=== PATIENT | female | born 1985 | race Caucasian/White ===

== ENCOUNTER → 2017-01-20 | Outpatient (CLI) | payer BC ==
[2016-03-02 21:01] VITALS: BP 114/77
[~2017-01-20] MED LIST: FAMO-63 PO; FOLI1TAB39 PO; NO HOME MEDICATIONS; OXYC-323 PO; PANT40TA3 PO; PHEN15CA PO
--- NOTE | 2017-01-20 09:02 | KCIC ---
Indication: Right thyroid nodule. Patient has history of Maryann's. The right lobe of the thyroid measures 3.8 x 1.3 x 1.7 cm. The left lobe is surgically absent. There is some heterogeneity and increased vascularity to the right lobe but no discrete mass is detected. IMPRESSION: 1. Status post left thyroidectomy. 2. Right lobe thyroid heterogeneity and increased vascularity but no discrete mass is identified. Electronically signed by: Yosef Esteban MD (01/20/2017 8:57 AM) [id number]
== END | disposition home or self-care (01) ==
LOC: KCIC US 08:02
PROVIDERS: ATTEND Nurse Practitioner Family
DX: E04.1 Nontoxic single thyroid nodule (principal); Z86.39 Personal history of other endocrine, nutritional and metabolic disease; Z90.89 Acquired absence of other organs
CPT/HCPCS: 76536

== ENCOUNTER → 2017-02-03 | Outpatient (CLI) | payer BC ==
[2016-03-02 21:01] VITALS: BP 114/77
== END | disposition home or self-care (01) ==
LOC: EKG 13:27
PROVIDERS: ATTEND Nurse Practitioner Family
DX: R00.2 Palpitations (principal)
CPT/HCPCS: 93225

== ENCOUNTER 2017-03-01 16:34 | Emergency (ER) | payer BC ==
[~2017-03-01] VITALS: Ht 162.6 cm; Wt 81.6 kg
[2017-03-01] MEDS ORDERED: LEVO125T5 PO (17:07)
[2017-03-01 17:14] LABS: BASO # 0.1 x10^3/uL (0.0-0.2); BASO % 1 % (0-3); EOS % 1 % (0-3); HEMOGLOBIN 13.8 g/dL (12.0-15.5); LYMPH # 2.1 x10^3/uL (1.0-4.8); LYMPH % 28 % (24-48); MEAN CORPUSCULAR HEMOGLOBIN 30 pg (25-35); MEAN CORPUSCULAR HGB CONC 35 g/dL (31-37); MEAN CORPUSCULAR VOLUME 84 fL (79-100); MONO % 6 % (0-9); NEUT % 64 % (31-73); PLATELET COUNT 299 x10^3/uL (140-400); RED BLOOD COUNT 4.67 x10^6/uL (3.50-5.40); RED CELL DISTRIBUTION WIDTH 13.2 % (11.5-14.5); WHITE BLOOD COUNT 7.4 x10^3/uL (4.0-11.0)
[2017-03-01] MEDS ORDERED: IV NORMAL SALINE 1000ML BAG 1,000 ML IV ONE (17:15)
[2017-03-01 17:24] LABS: CALCIUM 9.1 mg/dL (8.5-10.1); CREATININE 0.9 mg/dL (0.6-1.0); GFR 72.1; POTASSIUM 3.6 mmol/L (3.5-5.1)
[2017-03-01 17:29] LABS: ALBUMIN 3.7 g/dL (3.4-5.0); ALBUMIN/GLOBULIN RATIO 1.2 (1.0-1.7); TOTAL BILIRUBIN 0.4 mg/dL (0.2-1.0); TOTAL PROTEIN 6.9 g/dL (6.4-8.2)
[2017-03-01] MEDS ORDERED: IBUPROFEN 600 MG TABLET. PO ONE (18:30)
[2017-03-01 18:52] VITALS: BP 122/79
[2017-03-01] MEDS ORDERED: ALPR1TAB2 PO (19:01)
--- NOTE | 2017-03-01 19:01 | PHYS DOC ---
Past Medical History Past Medical History: Anxiety, Hypothyroid, Other Additional Past Medical Histor: reyanuds disease, nodule on thyroid, small heart murmur, "some PVC's" SVT Past Surgical History: Appendectomy, Cholecystectomy, , Tonsillectomy Additional Past Surgical Histo: R ELBOW, D&C, BREAST , R ULNAR N. DECOMPRESS, PARTIAL THYROID Alcohol Use: Rarely Drug Use: None Adult General Chief Complaint Chief Complaint: ANXIETY/PANIC ATTACK HPI HPI Patient is a 32 year old female with history significant for hypertension and hypothyroidism who presents here today secondary to anxiety. Patient has a history significant for thyroid disease in the past and she reports that recently her medication has been increased. Patient denies any liver longer kidney problems. Patient denies any diabetes or coronary disease. Patient has not had any strokes in the past. Patient has any mental health issues in the past. Patient has any prior DVTs or PEs. Patient reports that she has had SVT in the past and she has been treated. Patient reports that she was electrically cardioverted 3 times in the past. 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 Patient is concerned that she is going to lose everything and may go to penitentiary like her mother. Patient apparently had an altercation that was verbal with her father and her father apparently disowned her earlier today. Patient is also concerned because she lives in her father's home and pays the police and her father just gave her 30 days noticed to leave the house. Patient denies any recent fevers shakes chills nausea vomiting diarrhea calf tenderness. Patient denies being on control pills. Patient has any tobacco alcohol or drugs. 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 Patient is short of breath. Patient reports that she feels like her heart is racing. Patient reports that she feels like this is all her anxiety secondary to lack of sleep and all the stressors in her life at this time. Patient's physical exam is remarkable for a resting tachycardia of 105. Patient is tearful crying. Review of systems: Constitutional: Denies fever or chills Eyes: Denies change in visual acuity, redness, or eye pain HENT: Denies nasal congestion or sore throat All other review systems are negative except as documented in the history of present illness portion. Physical exam: Constitutional: Well developed, well nourished, no acute distress, non-toxic appearance. HENT: Normocephalic, atraumatic, bilateral external ears normal, nose normal. Eyes: EOMI, conjunctiva normal, no discharge. Neck: Normal range of motion, no tenderness, supple, no stridor. Cardiovascular:Heart rate regular rhythm Lungs & Thorax: Bilateral breath sounds clear to auscultation no respiratory distress Abdomen: Bowel sounds normal, soft, no tenderness, no masses, no pulsatile masses. Skin: Warm, dry, no erythema, no rash. Back: No tenderness, no CVA tenderness. Extremities: No tenderness, no cyanosis, no clubbing, ROM intact, no edema. Neurologic: Alert and oriented X 3, normal motor function, normal sensory function, no focal deficits noted. Assessment and plan Anxiety disorder. Patient's clinically hemodynamically stable. Patient's labs were all within normal limits. Patient be discharged home in stable condition with a short course of Xanax. Patient was given Ativan 1 mg IV and looks and feels much improved. Patient was given a liter of normal saline. Patient's thyroid was checked and was within normal limits. Patient's EKG revealed normal sinus tach with nonspecific ST-T wave abnormalities without any evidence of ST elevation WI. Patient currently denies any suicidal or homicidal ideation. Patient is with her feels comfortable at this time to go home and will follow-up with mental health Current Medications Current Medications Current Medications Medications (Trade) Dose Ordered Sig/Tera Start Time Stop Time Status Last Admin Dose Admin Ibuprofen (Motrin) 600 mg 1X ONCE 03/01/17 18:30 03/01/17 18:32 DC Lorazepam (Ativan) 1 mg 1X ONCE 03/01/17 17:15 03/01/17 17:16 DC 03/01/17 17:11 1 MG Sodium Chloride 1,000 ml @ 1,000 mls/hr 1X ONCE 03/01/17 17:15 03/01/17 18:14 DC 03/01/17 17:23 1,000 MLS/HR Allergies Allergies Allergies Coded Allergies Type Severity Reaction Last Updated Verified naratriptan Allergy Severe ANAPHYLAXIS 05/19/15 Yes Penicillins Allergy Intermediate 05/19/15 Yes nalbuphine HCl Allergy Intermediate 03/02/16 Yes peanut Allergy Intermediate SOB/Throat tightness 05/19/15 Yes Current Patient Data Vital Signs Vital Signs Date Time Temp Pulse Resp B/P (MAP) Pulse Ox O2 Delivery O2 Flow Rate FiO2 03/01/17 17:52 96 28 130/84 (99) 96 Room Air 03/01/17 16:34 98.4 98.4 Lab Values Laboratory Tests Test 03/01/17 16:55 White Blood Count 7.4 x10^3/uL (4.0-11.0) Red Blood Count 4.67 x10^6/uL (3.50-5.40) Hemoglobin 13.8 g/dL (12.0-15.5) Hematocrit 39.0 % (36.0-47.0) Mean Corpuscular Volume 84 fL (79-100) Mean Corpuscular Hemoglobin 30 pg (25-35) Mean Corpuscular Hemoglobin Concent 35 g/dL (31-37) Red Cell Distribution Width 13.2 % (11.5-14.5) Platelet Count 299 x10^3/uL (140-400) Neutrophils (%) (Auto) 64 % (31-73) Lymphocytes (%) (Auto) 28 % (24-48) Monocytes (%) (Auto) 6 % (0-9) Eosinophils (%) (Auto) 1 % (0-3) Basophils (%) (Auto) 1 % (0-3) Neutrophils # (Auto) 4.7 x10^3uL (1.8-7.7) Lymphocytes # (Auto) 2.1 x10^3/uL (1.0-4.8) Monocytes # (Auto) 0.4 x10^3/uL (0.0-1.1) Eosinophils # (Auto) 0.1 x10^3/uL (0.0-0.7) Basophils # (Auto) 0.1 x10^3/uL (0.0-0.2) Sodium Level 141 mmol/L (136-145) Potassium Level 3.6 mmol/L (3.5-5.1) Chloride Level 105 mmol/L (98-107) Carbon Dioxide Level 24 mmol/L (21-32) Anion Gap 12 (6-14) Blood Urea Nitrogen 11 mg/dL (7-20) Creatinine 0.9 mg/dL (0.6-1.0) Estimated GFR (Cockcroft-Gault) 72.1 BUN/Creatinine Ratio 12 (6-20) Glucose Level 110 mg/dL (70-99) H Calcium Level 9.1 mg/dL (8.5-10.1) Total Bilirubin 0.4 mg/dL (0.2-1.0) Aspartate Amino Transferase (AST) 10 U/L (15-37) L Alanine Aminotransferase (ALT) 22 U/L (14-59) Alkaline Phosphatase 81 U/L (46-116) Total Protein 6.9 g/dL (6.4-8.2) Albumin 3.7 g/dL (3.4-5.0) Albumin/Globulin Ratio 1.2 (1.0-1.7) Thyroid Stimulating Hormone (TSH) 2.429 uIU/mL (0.358-3.74) Laboratory Tests 03/01/17 16:55 Laboratory Tests 03/01/17 16:55 EKG EKG [] Radiology/Procedures Radiology/Procedures [] Course & Med Decision Making Course & Med Decision Making Pertinent Labs and Imaging studies reviewed. (See chart for details) [] Dragon Disclaimer Dragon Disclaimer This electronic medical record was generated, in whole or in part, using a voice recognition dictation system. Departure Departure Impression: Primary Impression: Palpitation Additional Impression: Anxiety Disposition: 01 HOME, SELF-CARE Condition: IMPROVED Referrals: SHAHZAD WATT MD (PCP) Patient Instructions: Anxiety and Panic Attacks Scripts Alprazolam (XANAX) 1 Mg Tablet 1 TAB PO BID, #6 TAB Prov: CHEMA ACOSTA MD 03/01/17 Problem Qualifiers CHEMA ACOSTA MD Mar 01, 2017 19:01
--- NOTE | 2017-03-02 08:34 | EKG ---
[facility] [address] [place] [address] Test Date: 2017-03-01 Test Time: 16:43:29 Pat Name: BERTA MATTHEW Department: Room: Gender: F Marketing Teacher: : 1985 Requested By: CHEMA ACOSTA Order Number: [id number] Reading MD: Kwan Glez Measurements Intervals [place] Rate: 106 P: 40 MA: 146 QRS: 25 QRSD: 80 T: 4 QT: 316 QTc: 421 Interpretive Statements SINUS TACHYCARDIA Electronically Signed On 03-08-2017 14:01:24 CDT by Kwan Glez
== END 2017-03-01 19:18 | disposition home or self-care (01) ==
LOC: ER 16:34
DX: F41.9 Anxiety disorder, unspecified (principal); E03.9 Hypothyroidism, unspecified; I10 Essential (primary) hypertension
CPT/HCPCS: 36415; 80053; 84443; 85025; 93005; 96361; 96374; 99285; J2060; J7030

== ENCOUNTER → 2017-12-15 | Outpatient (CLI) | payer BC | END | disposition home or self-care (01) | LOC: KCIC US 11:02 | DX: E89.0 Postprocedural hypothyroidism (principal) | CPT/HCPCS: 76536 ==

== ENCOUNTER → 2018-04-13 | Outpatient (CLI) | payer BC ==
[~2018-04-13] MED LIST changes: +ALPR1TAB2 PO; +LEVO125T5 PO; -PHEN15CA PO; +PHEN15CA2 PO
--- NOTE | 2018-04-13 15:58 | KCIC ---
CT ABDOMEN PELVIS WO CONTRAST Indication: Left-sided kidney stone. Pain. Nausea. Cholecystectomy. Total hysterectomy. Exposure: One or more of the following individualized dose reduction techniques were utilized for this examination: 1. Automated exposure control 2. Adjustment of the mA and/or kV according to patient size 3. Use of iterative reconstruction technique. Comparison: None are available. Contrast: No intravenous contrast given. No oral contrast per request. Evaluation of solid viscera, bowel and vasculature is compromised by the noncontrast technique. Lower thorax: Lung bases are clear. Liver: The superior dome is not included in the area of coverage. Liver otherwise appears unremarkable. Spleen: Unremarkable Pancreas: Unremarkable Adrenals: No evidence of mass. Kidneys: No obvious mass. Urinary tracts: No urolithiasis or hydronephrosis. Gallbladder: Surgically absent Aorta: Nonaneurysmal Lymph nodes: Small inguinal lymph nodes. No pathologic lymph node enlargement. GI tract: Mild diverticulosis. No bowel obstruction. No evidence of acute colitis. . The appendix it is not visualized, surgical clips in the area. Reproductive organs: Round mass in the left adnexa. Measures 4.5 cm diameter. Measures 4.5 Hounsfield units, may represent an ovarian cyst assuming patient has not had oophorectomy. Mild stranding in the surrounding fat. Urinary bladder: Not adequately distended for evaluation. Peritoneum: No evidence of pneumoperitoneum. No free fluid. Abdominal wall: Unremarkable Spine: Vertebral body height and alignment are intact. Bones: No destructive process identified. IMPRESSION: 1. Low-density lesion of the left adnexa, may represent a 4.5 cm ovarian cyst, but other etiology is not excludable. There is surrounding inflammatory type change, and if there is clinical concern for infection, an abscess is possible. Consider pelvic ultrasound for further evaluation. 2. No evidence of urolithiasis or urinary tract obstruction. Electronically signed by: Donnie Hooks MD (04/13/2018 3:54 PM) [facility]
== END | disposition home or self-care (01) ==
LOC: KCIC CT 14:47
PROVIDERS: ATTEND Nurse Practitioner Family
DX: N20.0 Calculus of kidney (principal); K57.30 Diverticulosis of large intestine without perforation or abscess without bleeding
CPT/HCPCS: 74176

== ENCOUNTER → 2018-04-14 | Outpatient (CLI) | payer BC ==
--- NOTE | 2018-04-14 15:38 | KCIC ---
EXAM: Pelvic sonogram. HISTORY: Complex ovarian cyst on CT. TECHNIQUE: Sonographic imaging of the pelvis was performed. COMPARISON: CT dated 04/13/2018. FINDINGS: The uterus is surgically absent. The ovaries are normal in size. There is a 3.0 cm complex left ovarian cyst with internal echoes. There is normal blood flow within both ovaries. There is no pelvic free fluid. IMPRESSION: 1. 3.0 cm complex left ovarian cyst, possibly partially hemorrhagic in etiology. Follow-up can be performed to confirm resolution. 2. Surgically absent uterus unremarkable right ovary. Electronically signed by: Xiomy Chaudhary MD (04/14/2018 3:34 PM) [id number]
== END | disposition home or self-care (01) ==
LOC: KCIC US 14:45
PROVIDERS: ATTEND Nurse Practitioner Family
DX: N83.292 Other ovarian cyst, left side (principal); Z90.710 Acquired absence of both cervix and uterus
CPT/HCPCS: 76856

== ENCOUNTER → 2018-07-15 | Outpatient (CLI) | payer BC ==
[~2018-07-15] MED LIST changes: -OXYC-323 PO; +OXYC1TAB15 PO
--- NOTE | 2018-07-15 16:27 | KCIC ---
THYROID ULTRASOUND History: Pain, left thyroidectomy, history of Maryann's Comparison: December 15, 2017 Findings: Multiple sonographic images of the right thyroid gland and site of left thyroid fossa are submitted. Right lobe measured 4 x 1.5 x 1.2 cm. Isthmus measured 0.1 cm in thickness. There has been left thyroidectomy, no nodularity in this region. There is diffuse heterogeneity of the right thyroid parenchyma with associated hypervascularity on color Doppler imaging. Hypervascularity has developed in the interval. Impression: 1. There is diffuse heterogeneity of the right thyroid parenchyma as seen previously although there has been development of associated hypervascularity. Findings may be seen with thyroiditis. There has been left thyroidectomy. Electronically signed by: Marques Maxwell MD (07/15/2018 4:23 PM) [id number]
== END | disposition home or self-care (01) ==
LOC: KCIC US 14:46
PROVIDERS: ATTEND Nurse Practitioner Family
DX: E04.1 Nontoxic single thyroid nodule (principal)
CPT/HCPCS: 76536

== ENCOUNTER → 2019-01-04 | Outpatient (CLI) | payer BC ==
[~2019-01-04] MED LIST changes: -PANT40TA3 PO; +PANT40TA77 PO
--- NOTE | 2019-01-04 16:45 | KCIC ---
Thyroid sonogram Clinical indications: Thyroid nodule. Maryann's. Left thyroidectomy in August 2015. COMPARISON: July 15, 2018 and December 15, 2017. FINDINGS: The longitudinal AP and transverse dimensions of the right lobe are 3.8 cm and 1.6 cm and 1.3 cm respectively. The right lobe is heterogeneous without discrete solid mass or cyst. The isthmus measures 2 mm in thickness without mass. The left lobe is surgically absent. IMPRESSION: Heterogeneous right lobe may be seen with Maryann's disease. No discrete nodule of the right lobe is seen. No significant change. Electronically signed by: Nadeem Esteves MD (01/04/2019 4:42 PM) [place] [id number]
== END | disposition home or self-care (01) ==
LOC: KCIC US 09:49
PROVIDERS: ATTEND Nurse Practitioner Family
DX: Z03.89 Encounter for observation for other suspected diseases and conditions ruled out (principal)
CPT/HCPCS: 76536

== ENCOUNTER → 2019-02-01 | Outpatient (CLI) | payer BC ==
--- NOTE | 2019-02-01 16:33 | KCIC ---
Bilateral diagnostic digital mammograms with 3-D tomosynthesis: Reason for examination: Left breast pain and right breast lump. Comparison is made to previous study dated 02/28/2015. Bilateral mammograms in CC and oblique projections were obtained with 2-D imaging and 3-D tomosynthesis imaging on a [employer] unit and reviewed on the workstation. Interpretation was made with the benefit of CAD. The skin and nipples show no abnormalities. No abnormal axillary lymph nodes are seen. Bilateral retroglandular breast implants remain present. The breast parenchyma is predominantly fatty. (Breast density: Category A.) There are no dominant masses, suspicious calcifications or architectural distortion. Impression: No evidence of malignancy. Ultrasound to follow. BI-RAD Category 0: Incomplete. Needs additional imaging evaluation. Bilateral breast ultrasound: Bilateral whole breast ultrasound including evaluation of all 4 quadrants and the retroareolar and axillary regions of both breasts was performed. The right breast shows some focal patchy fibroglandular tissue at the 9:00 position 3 cm from the nipple. No other cystic or solid lesions are seen in the right breast. Right breast implant however shows changes which suggests intracapsular rupture. No abnormal appearing lymph nodes are seen in the right axilla. The left breast shows some patchy fibroglandular tissue at the 5:00 position. No other cystic or solid lesions are seen in the left breast. The left breast implant also shows changes suggesting intracapsular rupture. No abnormal appearing lymph nodes are seen in the left axilla. IMPRESSION: No suspicious abnormality seen in the breast parenchyma. Changes in the breast implants bilaterally consistent with intracapsular rupture. Plastic surgery consultation should be considered. BI-RADS Category 2: Benign. "Our facility is accredited by the [employer] Mammography Program." This patient's information has been entered into a reminder system for the patient to be notified with the results of her examination and a target date for the next mammogram. Electronically signed by: Norma Maguire MD (02/01/2019 4:30 PM) [id number]
== END | disposition home or self-care (01) ==
LOC: KCIC MAMMO 07:56
PROVIDERS: ATTEND Nurse Practitioner Family
DX: N64.4 Mastodynia (principal); N63.10 Unspecified lump in the right breast, unspecified quadrant; Z98.82 Breast implant status
CPT/HCPCS: 76641; 77066; G0279; 77062